=== PATIENT | female | born 1940 | race Caucasian/White ===

== ENCOUNTER 2016-07-07 10:32 | Emergency (ER) | payer MEDICARE, OTHER ==
[2016-07-07 12:03] LABS: HEMOGLOBIN 14.3 gm/dl (12.3-15.3); RED BLOOD COUNT 4.63 M/UL (4.00-5.10); WHITE BLOOD COUNT 11.9 K/UL (4.5-11.0)
== END 2016-07-07 16:20 | disposition home or self-care (01) ==
LOC: ER1 10:32
PROVIDERS: Physician Assistant
DX: J44.1 Chronic obstructive pulmonary disease with (acute) exacerbation (principal); I10 Essential (primary) hypertension; E07.9 Disorder of thyroid, unspecified; E78.5 Hyperlipidemia, unspecified; Z88.0 Allergy status to penicillin; Z88.5 Allergy status to narcotic agent; Z79.899 Other long term (current) drug therapy
CPT/HCPCS: 36415; 71010; 80053; 81001; 82550; 82553; 83874; 84484; 85025; 87040; 87081; 87880; 93005; 94664; 96360; 96361; 99283; J2930

== ENCOUNTER 2016-07-13 09:18 | Observation (INO) | payer MEDICARE, OTHER ==
[~2016-07-13] VITALS: Ht 160 cm; Wt 73.5 kg
[2016-07-13 10:23] LABS: HEMOGLOBIN 14.7 gm/dl (12.3-15.3); RED BLOOD COUNT 4.66 M/UL (4.00-5.10); WHITE BLOOD COUNT 10.6 K/UL (4.5-11.0)
[2016-07-13] MEDS ORDERED: BUSPIRONE HCL15 MG PO (15:02)
[2016-07-13] MEDS ORDERED: SYNTHROID25 MCG PO (15:03)
[2016-07-13] MEDS ORDERED: ZOFRAN4 MG PO (15:03)
[2016-07-13] MEDS ORDERED: PRAVACHOL40 MG PO (15:04)
[2016-07-13] MEDS ORDERED: ZESTORETIC 10-1 EACH PO (15:05)
[2016-07-13] MEDS ORDERED: PROVENTIL HFA 61 INH INH (15:41)
[2016-07-14 04:48] LABS: HEMOGLOBIN 12.8 gm/dl (12.3-15.3); WHITE BLOOD COUNT 11.2 K/UL (4.5-11.0)
[2016-07-14 04:49] LABS: RED BLOOD COUNT 4.12 M/UL (4.00-5.10)
[2016-07-14] MEDS ORDERED: DULERA 200 MCG8.8 GM INH (19:03)
[2016-07-14] MEDS ORDERED: ASPIR 8181 MG PO (19:03)
== END 2016-07-14 18:10 | disposition home or self-care (01) ==
LOC: ER1 09:18 → M/S 12:15 → ZEROF 12:15 → M/S 14:01
PROVIDERS: Emergency Medicine; ADMIT Hospitalist
DX: R07.89 Other chest pain (principal); I45.4 Nonspecific intraventricular block; I71.4 Abdominal aortic aneurysm, without rupture; J44.1 Chronic obstructive pulmonary disease with (acute) exacerbation; I70.201 Unspecified atherosclerosis of native arteries of extremities, right leg; E78.5 Hyperlipidemia, unspecified; E03.9 Hypothyroidism, unspecified; I12.9 Hypertensive chronic kidney disease with stage 1 through stage 4 chronic kidney disease, or unspecified chronic kidney disease; N18.3 Chronic kidney disease, stage 3 (moderate); E88.09 Other disorders of plasma-protein metabolism, not elsewhere classified; N17.9 Acute kidney failure, unspecified; N20.0 Calculus of kidney; F17.210 Nicotine dependence, cigarettes, uncomplicated; Z79.82 Long term (current) use of aspirin; Z79.899 Other long term (current) drug therapy; Z83.3 Family history of diabetes mellitus; Z88.0 Allergy status to penicillin; Z88.6 Allergy status to analgesic agent
CPT/HCPCS: ECHO; 36415; 71010; 80053; 80061; 81001; 82550; 82553; 83874; 83880; 84484; 85025; 85027; 87086; 93005; 93306; 94640; 94664; 96361; 96374; 96375; 96376; 99285; C9113; G0378; J2270; J2405; J7030; J7050

== ENCOUNTER → 2016-09-25 | Outpatient (CLI) | payer MEDICARE, OTHER ==
[~2016-09-25] MED LIST: ASPIR 8181 MG PO; BUSPIRONE HCL15 MG PO; DULERA 200 MCG8.8 GM INH; PRAVACHOL40 MG PO; PROVENTIL HFA 61 INH INH; SYNTHROID25 MCG PO; ZESTORETIC 10-1 EACH PO; ZOFRAN4 MG PO
== END ==
LOC: HEART 5 10:10
DX: J44.9 Chronic obstructive pulmonary disease, unspecified (principal)
CPT/HCPCS: 94060; 94729

== ENCOUNTER 2020-10-26 15:16 | Emergency (ER) | payer MEDICARE, OTHER ==
[~2020-10-26 15:16] MED LIST changes: +ALBUTEROL1.25 MG/3 INH; +ALBUTEROL2.5 MG/3 M INH; +AMLODIPINE BESYL5 MG PO; +AZITHROMYCIN500 MG PO; +BACTRIM DS TAB1 EACH PO; +BREO ELLIPTA 11 EACH INH; +CEFUROXIME500 MG PO; +CLINDAMYCIN HC150 MG PO; +DOXYCYCLINE HY100 M2 PO; +LIPITOR TAB 2020 MG PO; +NORCO 7.5-3251 EACH PO; +OMNICEF 300 MG300 MG PO; +OXYGEN; +PHENERGAN 12.12.5 M1 PO; +PROBIOTIC1 EAC3 PO; +PYRIDIUM100 MG PO; +THERAGRAN M TAB1 EA PO; +ZOFRAN ODT4 MG PO
[2020-10-26 18:58] LABS: HEMOGLOBIN 10.8 gm/dl (12.3-15.3); RED BLOOD COUNT 3.4 M/UL (4.00-5.10); WHITE BLOOD COUNT 15.9 K/UL (4.5-11.0)
[2020-10-26 19:30] LABS: BUN/CREATININE RATIO 42 (0-10)
[2020-10-26] MEDS ORDERED: CEFDINIR300 MG PO (20:13)
[2020-10-26] MEDS ORDERED: ZITHROMAX250 MG PO (20:13)
[2020-10-26] MEDS ORDERED: K-DUR TAB 20 M20 MEQ PO (20:14)
== END 2020-10-26 21:30 | disposition home or self-care (01) ==
LOC: ER1 15:16
PROVIDERS: Physician Assistant
DX: S09.90XA Unspecified injury of head, initial encounter (principal); S16.1XXA Strain of muscle, fascia and tendon at neck level, initial encounter; S70.02XA Contusion of left hip, initial encounter; S90.121A Contusion of right lesser toe(s) without damage to nail, initial encounter; R53.1 Weakness; E87.6 Hypokalemia; J18.9 Pneumonia, unspecified organism; E86.0 Dehydration; F17.200 Nicotine dependence, unspecified, uncomplicated; E78.5 Hyperlipidemia, unspecified; J44.9 Chronic obstructive pulmonary disease, unspecified; Z88.0 Allergy status to penicillin; Z88.5 Allergy status to narcotic agent; W19.XXXA Unspecified fall, initial encounter; Y92.009 Unspecified place in unspecified non-institutional (private) residence as the place of occurrence of the external cause
CPT/HCPCS: 36600; 70450; 70486; 71111; 71250; 72125; 73502; 73630; 80053; 82550; 82553; 82803; 83605; 83874; 84484; 85025; 87040; 93005; 96365; 96366; 96375; 99284; J0456; J0696; J7030

== ENCOUNTER 2020-11-07 13:21 | Inpatient (IN) | payer MEDICARE, OTHER ==
[~2020-11-07] VITALS: Ht 160 cm; Wt 70.8 kg
[~2020-11-07 13:21] MED LIST changes: +CEFDINIR300 MG PO; +K-DUR TAB 20 M20 MEQ PO; +ZITHROMAX250 MG PO
[2020-11-07 14:49] LABS: HEMOGLOBIN 10.1 gm/dl (12.3-15.3); RED BLOOD COUNT 3.24 M/UL (4.00-5.10); WHITE BLOOD COUNT 10.2 K/UL (4.5-11.0)
[2020-11-07 15:03] LABS: BUN/CREATININE RATIO 17 (0-10)
[2020-11-07] MEDS ORDERED: LISINOPRIL-HCT1 EAC1 PO (23:27)
[2020-11-07] MEDS ORDERED: EUTHYROX25 MCG PO (23:29)
[2020-11-07] MEDS ORDERED: TRELEGY ELLIPT1 EACH INH (23:30)
[2020-11-07] MEDS ORDERED: VENTOLIN HFA 66.7 GM INH (23:31)
[2020-11-08 04:29] LABS: HEMOGLOBIN 8.7 gm/dl (12.3-15.3); RED BLOOD COUNT 2.78 M/UL (4.00-5.10); WHITE BLOOD COUNT 8.2 K/UL (4.5-11.0)
[2020-11-08 04:59] LABS: BUN/CREATININE RATIO 14 (0-10)
[2020-11-08 18:49] LABS: BORDETELLA PARAPERTUSSIS Not Detected (Not Detectd); BORDETELLA PERTUSSIS Not Detected (Not Detectd); CHLAMYDIA PNEUMONIAE Not Detected (Not Detectd); CORONAVIRUS HKU1 Not Detected (Not Detectd); CORONAVIRUS NL63 Not Detected (Not Detectd); CORONAVIRUS OC43 Not Detected (Not Detectd); CORONOAVIRUS 229E Not Detected (Not Detectd); HUMAN METAPNEUMOVIRUS Not Detected (Not Detectd); HUMAN RHINOVIRUS/ENTEROVIRUS Not Detected (Not Detectd); INFLUENZA A Not Detected (Not Detectd); INFLUENZA B Not Detected (Not Detectd); MYCOPLASMA PNEUMONIAE Not Detected (Not Detectd); PARAINFLUENZA VIRUS 1 Not Detected (Not Detectd); PARAINFLUENZA VIRUS 2 Not Detected (Not Detectd); PARAINFLUENZA VIRUS 3 Not Detected (Not Detectd); PARAINFLUENZA VIRUS 4 Not Detected (Not Detectd); RESPIRATORY SYNCYTIAL VIRUS Not Detected (Not Detectd)
[2020-11-09 03:56] LABS: SARS-CoV-2 NOT DETECTED (Not Detectd)
[2020-11-09 04:08] LABS: HEMOGLOBIN 9.3 gm/dl (12.3-15.3); RED BLOOD COUNT 2.9 M/UL (4.00-5.10); WHITE BLOOD COUNT 8.4 K/UL (4.5-11.0)
[2020-11-09 04:36] LABS: BUN/CREATININE RATIO 11 (0-10)
[2020-11-10 04:27] LABS: HEMOGLOBIN 8.8 gm/dl (12.3-15.3); RED BLOOD COUNT 2.85 M/UL (4.00-5.10); WHITE BLOOD COUNT 7.7 K/UL (4.5-11.0)
[2020-11-10 04:48] LABS: BUN/CREATININE RATIO 10 (0-10)
[2020-11-11 04:44] LABS: BUN/CREATININE RATIO 15 (0-10)
[2020-11-11 06:44] LABS: QUANTIFERON MITOGEN VALUE >10.00 IU/mL (.); QUANTIFERON-TB GOLD PLUS Negative (Negative)
[2020-11-12 05:02] LABS: HEMOGLOBIN 8.9 gm/dl (12.3-15.3); RED BLOOD COUNT 2.89 M/UL (4.00-5.10); WHITE BLOOD COUNT 6.5 K/UL (4.5-11.0)
[2020-11-12 05:26] LABS: BUN/CREATININE RATIO 12 (0-10)
[2020-11-12 14:09] LABS: ORGANISM ID Not indicated. (.); SPECIMEN SOURCE Urine (.); STREPTOCOCCUS PNEUMONIAE AG Negative (Negative)
[2020-11-12] MEDS ORDERED: SPIRIVA RESPIMAT4 GM INH (14:16)
[2020-11-12] MEDS ORDERED: IPRAT-ALBUT 0.5-3 ML INH (14:16)
[2020-11-12] MEDS ORDERED: TESSALON PERLE100 MG PO (14:31)
--- NOTE | 2020-11-12 15:39 | NUR ---
report given to admitting nurse at [facility] c/o tyson. awaiting for midline placement and result of covid test
[2020-11-12] MEDS ORDERED: FERROUS SULFAT325 M2 PO (16:54)
[2020-11-12] MEDS ORDERED: VENOFER100 MG/5 M IV (16:57)
--- NOTE | 2020-11-12 17:21 | NUR ---
report given to [facility] admitting nurse of medication changes; add dustin to omarn d/c list. awaiting for midline placement
--- NOTE | 2020-11-12 18:43 | NUR ---
fernando to access patient to have midline today and spokent to admitting nurse- tyson @ [facility] who spoke to admitting md and was informed that the admitting doctor would like to have patient with midline/picc line because of patient antibiotics medications. informed dr. leyva of the above and acknowledged. informed patient and verb understanding. informed store warehouse associate-jojo
--- NOTE | 2020-11-13 10:58 | NUR ---
spoken to powerhouse mechanic and marycruz bryant r/t picc line placement/midline placement. acknowledged
--- NOTE | 2020-11-13 17:44 | NUR ---
was informed from resource nurse - richie that midline/picc line nurse will not be able to insert picc line/midline access today because of emergency cardiac cath case added. informed patient and family and agreeable. informed dr. calvillo and will notify [facility]
--- NOTE | 2020-11-13 18:01 | NUR ---
notified [facility] and aware patient is not going to be transferred today.
[2020-11-14 04:45] LABS: BUN/CREATININE RATIO 15 (0-10)
--- NOTE | 2020-11-14 11:18 | NUR ---
report given to t[facility] admitting nurse.
[2020-11-14] MEDS ORDERED: FERROCITE324 MG PO (11:25)
--- NOTE | 2020-11-14 14:17 | NUR ---
contacted dr. calvillo of duration of IV medications and stated everything is in the d/c dictation.
--- NOTE | 2020-11-15 13:40 | NUR ---
Late entry: 11/14/2020 at 0830. 20g x 10cm midline placed in the left basilic vein. Aspirates and flushes well.
== END 2020-11-14 15:02 | disposition swing bed (61) | DRG 177 ==
LOC: ER1 13:21 → CDU 19:19 → M/S 19:19
PROVIDERS: Family Medicine; Internal Medicine; ADMIT Internal Medicine
DX: J85.0 Gangrene and necrosis of lung (principal); J96.21 Acute and chronic respiratory failure with hypoxia; J44.1 Chronic obstructive pulmonary disease with (acute) exacerbation; D50.9 Iron deficiency anemia, unspecified; E03.9 Hypothyroidism, unspecified; I10 Essential (primary) hypertension; Z79.899 Other long term (current) drug therapy; I71.4 Abdominal aortic aneurysm, without rupture; I44.7 Left bundle-branch block, unspecified; Z87.891 Personal history of nicotine dependence; Z88.5 Allergy status to narcotic agent; Z88.0 Allergy status to penicillin; R74.01 Elevation of levels of liver transaminase levels; E88.09 Other disorders of plasma-protein metabolism, not elsewhere classified; E78.5 Hyperlipidemia, unspecified; R91.1 Solitary pulmonary nodule; Z66 Do not resuscitate
CPT/HCPCS: 36415; 71045; 80048; 80053; 80202; 81001; 82550; 82553; 83540; 83550; 83605; 83690; 83735; 83874; 84439; 84443; 84484; 85025; 85027; 85652; 86140; 86738; 87040; 87070; 87205; 87278; 87633; 87899; 93005; 94640; 94664; 94760; 96374; 99285; C1751; J0692; J1650; J1756; J2185; J2405; J3370; J7070; Q9967; U0002

== ENCOUNTER → 2020-12-31 | Outpatient (CLI) | payer MEDICARE, OTHER ==
[~2020-12-31] MED LIST changes: +EUTHYROX25 MCG PO; +FERROCITE324 MG PO; +FERROUS SULFAT325 M2 PO; +IPRAT-ALBUT 0.5-3 ML INH; +LISINOPRIL-HCT1 EAC1 PO; +SPIRIVA RESPIMAT4 GM INH; +TESSALON PERLE100 MG PO; +TRELEGY ELLIPT1 EACH INH; +VENOFER100 MG/5 M IV; +VENTOLIN HFA 66.7 GM INH
== END ==
LOC: CT 09:17
DX: R91.8 Other nonspecific abnormal finding of lung field (principal); J18.9 Pneumonia, unspecified organism
CPT/HCPCS: 71250